=== PATIENT | female | born 1970 | race American Indian/Alaskan Native ===

== ENCOUNTER 2016-06-12 11:15 | Emergency (ER) | payer MEDICAID, OTHER ==
--- NOTE | 2016-06-12 16:16 | Emergency Department Report ---
HPI - General Chief Complaint: Upper Respiratory Infection Time Seen by Provider: 06/12/16 14:43 - HPI HPI: 46-year-old female presents today with sore throat, headache, cough 3 days. Patient states that her granddaughter's has been sick for over a week. Tried [id number] cough medicine without relief. Denies chest pain, shortness of breath, abdominal pain, fevers, chills, nausea, vomiting. ED Past Medical Hx - Past Medical History Previous Medical History?: Yes Hx Hypertension: Yes - Surgical History Past Surgical History?: Yes Additional Surgical History: 2 , Hemorrhoidectomy - Social History Smoking Status: Current Every Day Smoker Substance Use Type: Alcohol, Prescribed - Medications Home Medications: Home Medications Medication Instructions Recorded Confirmed Last Taken Type Amoxicillin/K Clav Tab [Augmentin 1 tab PO Q12HR #20 tab 06/12/16 Unknown Rx 875 mg] Fluticasone [Flonase] 1 spray NS QDAY #1 bottle 06/12/16 Unknown Rx guaiFENesin/DEXTROMETHORPHAN 1 each PO Q12H #20 tab 06/12/16 Unknown Rx [Mucinex Dm ER 1,200-60 mg Tab] ED Review of Systems ROS: Stated complaint: COLD SX Other details as noted in HPI Constitutional: denies: chills, fever, malaise Eyes: denies: eye pain ENT: throat pain, congestion. denies: ear pain Respiratory: cough. denies: shortness of breath, wheezing Cardiovascular: denies: chest pain, palpitations Endocrine: no symptoms reported Gastrointestinal: denies: abdominal pain, nausea, vomiting Neurological: headache. denies: weakness Physical Exam - Physical Exam Vital Signs: Vital Signs 06/12/16 11:41 Temperature 98.2 F Pulse Rate 72 Respiratory 18 Rate Blood Pressure 138/92 O2 Sat by Pulse 100 Oximetry Physical Exam: GENERAL: The patient is well-developed and well-nourished. Patient is in NAD. HEAD: Normocephalic. Atraumatic. EYES: PERRL. EARS: External auditory canals and tympanic membranes clear; hearing grossly intact. NOSE: Normal nasal mucosa with no nasal discharge. Tenderness to palpation over frontal sinuses. THROAT: Minimal erythema. No tonsillomegaly or tonsillar exudates noted. NECK: Supple, nontender, without lymphadenopathy. CHEST/LUNGS: Clear to auscultation throughout. HEART/CARDIOVASCULAR: Regular rate and rhythm. ABDOMEN: Abdomen is soft, nontender. Bowel sounds normoactive. No guarding or rebound tenderness. EXTREMITIES: Peripheral pulses intact. Capillary refill less than 2 seconds. NEURO: Alert and oriented x 3. Normal gait. ED Course Vital Signs 06/12/16 11:41 Temperature 98.2 F Pulse Rate 72 Respiratory 18 Rate Blood Pressure 138/92 O2 Sat by Pulse 100 Oximetry ED Medical Decision Making - Lab Data Vital Signs 06/12/16 11:41 Temperature 98.2 F Pulse Rate 72 Respiratory 18 Rate Blood Pressure 138/92 O2 Sat by Pulse 100 Oximetry - Medical Decision Making 46-year-old female presents today with frontal sinusitis. Patient is in no acute distress at this time. She will be discharged home and is encouraged to follow up with a primary care provider. She will be sent home on Augmentin and is encouraged to return to the emergency room for any worsening symptoms. Critical care attestation.: If time is entered above; I have spent that time in minutes in the direct care of this critically ill patient, excluding procedure time. ED Disposition Clinical Impression: Sinusitis Qualifiers: Sinusitis location: frontal Chronicity: acute Recurrence: non-recurrent Qualified Code(s): J01.10 - Acute frontal sinusitis, unspecified Pharyngitis Qualifiers: Pharyngitis/tonsillitis etiology: unspecified etiology Qualified Code(s): J02.9 - Acute pharyngitis, unspecified Disposition: DISCHARGED TO HOME OR SELFCARE Is pt being admited?: No Does the pt Need Aspirin: No Condition: Stable Instructions: Sinusitis (ED), Pharyngitis (ED) Additional Instructions: Follow-up with primary care provider. Return to the emergency department if symptoms worsen. Prescriptions: Amoxicillin/K Clav Tab [Augmentin 875 mg] 1 tab PO Q12HR #20 tab Fluticasone [Flonase] 1 spray NS QDAY #1 bottle guaiFENesin/DEXTROMETHORPHAN [Mucinex Dm ER 1,200-60 mg Tab] 1 each PO Q12H #20 tab Referrals: PRIMARY CARE, [Primary Care Provider] - 3-[address] [facility] [Outside] - 3-5 Days Forms: Work/School Release Form(ED), Accompanied Note Time of Disposition: 16:17
[2016-06-12 16:45] VITALS: BP 134/90
== END 2016-06-12 16:45 | disposition home or self-care (01) ==
LOC: ED 11:15
DX: J01.10 Acute frontal sinusitis, unspecified (principal); J02.9 Acute pharyngitis, unspecified; I10 Essential (primary) hypertension; F17.200 Nicotine dependence, unspecified, uncomplicated
CPT/HCPCS: 99282